=== PATIENT | female | born 1955 | race Caucasian/White ===

== ENCOUNTER 2022-08-21 11:48 | Day surgery (SDC) | payer OTHER ==
[~2022-08-21] VITALS: Ht 160 cm; Wt 92.7 kg
--- NOTE | ~2022-08-21 | OR ---
[facility] [address] [place], [place] [address] Draft DATE OF OPERATION: 08/21/2022 SURGEON: Eduarda Joseph MD PREOPERATIVE DIAGNOSES: 1. Upper abdominal pain consistent with gastroesophageal reflux. 2. Family history of colon cancer (father age 70). POSTOPERATIVE DIAGNOSES: 1. Umbilicated somewhat ulcerated lesion, duodenal bulb and mild gastritis. 2. Diverticulosis of colon. PROCEDURE: 1. Esophagogastroduodenoscopy with biopsies. 2. Total colonoscopy to cecum. ANESTHESIA: Intravenous sedation; fentanyl 150 mcg and Versed 4 mg. INDICATION: This 66-year-old white woman is a patient of Dr. David Smith. She has been referred for colonoscopy as well as upper endoscopy. She has no colonic symptoms currently, having no bleeding, diarrhea, constipation, but does have family history of colon cancer in her father at age 70. She last underwent colonoscopy in 2011, which was notable only for diverticulosis. She does have complaints of "reflux symptoms" including epigastric pain. She discontinued PPI medication, which had been prescribed before chronic esophagitis on previous upper endoscopy also in 2012. She uses Tums tablets and . She does not have dysphagia or hematemesis and has no family history of esophageal or stomach cancer. She is admitted at this time to undergo upper endoscopy and colonoscopy to better characterize her symptoms as well as assess for polyps, given her family history. She understands the risks of bleeding, infection, and perforation related upper endoscopy and colonoscopy and wished to proceed. FINDINGS: Upper endoscopy showed mild gastritis and mild distal esophagitis, but a good flap valve was noted. Most notable was a bulbar mucosal lesion that was hypertrophic and PATIENT NAME: TROY HILLIARD OPERATIVE REPORT DATE OF : 59 REPORT #: [id number] PHYSICIAN: EDUARDA JOSEPH MD PCP: DAVID SMITH DO REPORT IS CONFIDENTIAL AND NOT TO BE RELEASED WITHOUT AUTHORIZATION [facility] [address] [place], [place] [address] Draft umbilicated at the center portion. Multiple biopsies were taken of the lesion. The possibility of malignancy remains. CLOtest was negative 20 minutes post procedure. As regards colonoscopy, the prep was excellent. There were no polyps, only diverticular changes throughout. DESCRIPTION OF PROCEDURE: The patient was brought to the endoscopy suite, given topical lidocaine hypopharyngeal anesthesia and placed in lateral decubitus position. A bite block was placed. An Olympus video upper endoscope was passed in the hypopharynx. The vocal cords were normal. The scope was advanced down the esophagus, which was largely normal, though there was mild distal esophagitis. There was no Lackey's epithelium. Scope was advanced to the stomach, which was insufflated with air. Rugal folds were normal. There was mild diffuse inflammation, but not much. The pylorus was normal. The scope was passed through the pylorus into the duodenum. The 2nd and 3rd portions were normal. In the bulbar portion, however, there appeared to be an umbilicated hypertrophic or possibly adenomatous change directly behind the pylorus. It was difficult to fully visualize this, given the angle of the scope in the duodenal bulb. Multiple biopsies were taken of the lesion, however. The scope was withdrawn and biopsies then taken of the antrum and proximal stomach for both TAE and pathologic testing. Retroflexed view confirmed a very good flap valve. No evidence noted of hiatal hernia. The scope was withdrawn to the distal esophagus where biopsies were obtained and similarly to the mid esophagus. There was no evidence of Lackey's epithelium, neoplasm, stricture, or other issue. Plans were then made for colonoscopy. Digital rectal examination was found to be normal. An Olympus video colonoscope was passed in the rectum and manipulated throughout the colon ultimately intubating the cecum showing no sign of abnormality there. The scope was withdrawn and examination throughout showed no sign of abnormality, only diverticular changes of the left colon and sigmoid. Retroflexed view of the rectum was normal as well as the scope was removed. The patient was taken to recovery room in good condition. CONCLUDING DIAGNOSIS: 1. Uncertain mucosal lesion of the duodenal bulb (biopsied). 2. Mild gastritis, mild distal esophagitis without hiatal hernia. 3. Diverticular change of colon. PLAN: 1. We will initiate proton pump inhibitor therapy, omeprazole 20 mg p.o. daily. The patient will be reassured of the safety of this approach at this time. 2. High-fiber diet. PATIENT NAME: TROY HILLIARD OPERATIVE REPORT DATE OF : 59 REPORT #: [id number] PHYSICIAN: EDUARDA JOSEPH MD PCP: DAVID SMITH DO REPORT IS CONFIDENTIAL AND NOT TO BE RELEASED WITHOUT AUTHORIZATION [facility] [address] [place] [id number] Draft 3. Follow up to see me in approximately six weeks in the office. 4. Repeat colonoscopy in 5 years, sooner if clinically indicated. MD EDEN Walden/FELICITYL /[id number] cc: David Smith DO Copies: DAVID SMITH DO ~ PATIENT NAME: TROY HILLIARD OPERATIVE REPORT DATE OF : 59 REPORT #: [id number] PHYSICIAN: EDUARDA JOSEPH MD PCP: DAVID SMITH DO REPORT IS CONFIDENTIAL AND NOT TO BE RELEASED WITHOUT AUTHORIZATION
[2022-08-21] MEDS ORDERED: VITAMIN D310 MC1 PO (12:10)
[2022-08-21] MEDS ORDERED: MACULAR VITAMI1 EACH PO (12:11)
--- NOTE | 2022-08-21 13:49 | NUR ---
08/21/22 1349 Sheets,Yenny 1346 PT ARRIVED TO PACU ON 2L VIA NC, PT ASLEEP AND SMALL AMOUNT OF SNORING NOTED. RESP EVEN AND UNLABORED.
--- NOTE | 2022-08-23 13:43 | PATH ---
[facility] [facility] [address] [place], [place] [address] Signed SPECIMEN(S): A DUODENAL LESION BIOPSY SPECIMEN(S): B ANTRUM/PYLORUS BIOPSY SPECIMEN(S): C DISTAL ESOPHAGEAL BIOPSY SPECIMEN(S): D MID ESOPHAGEAL BIOPSY SPECIMEN SOURCE: A. DUODENAL LESION BIOPSY B. ANTRUM/PYLORUS BIOPSY C. DISTAL ESOPHAGEAL BIOPSY D. MID ESOPHAGEAL BIOPSY CLINICAL HISTORY: GERD; diverticulosis; family history of colon cancer. Postop diagnosis: Mild gastritis; diverticulosis FINAL PATHOLOGIC DIAGNOSIS: A. Duodenal lesion biopsy: - Extensive heterotopic gastric glandular epithelium. - Negative for atypical features. - Duodenal villous attenuation. - Negative for increased epithelial lymphocytes. B. Antrum / pylorus biopsy: - Benign gastric antral-type mucosa with focal slight chronic inflammation. - Negative for evidence of Helicobacter organisms on routine HE stained sections. C. Distal esophageal biopsy: - Benign esophageal and slight glandular epithelium. - Negative for specialized intestinal metaplasia or dysplasia. - Negative for increased eosinophils within the esophageal epithelium. D. Mid esophageal biopsy: - Benign esophageal mucosa, negative for increased epithelial eosinophils. JVR:[id number] MICROSCOPIC EXAMINATION: Histologic sections of all submitted blocks are examined by light microscopy. These findings, together with the gross examination, support the pathologic diagnosis. GROSS DESCRIPTION: A. The specimen, labeled and designated "Arnold duodenum lesion biopsy," is received in formalin and consists of eight mathias soft tissue fragments, each PATIENT NAME: TROY HILLIARD PATHOLOGY DATE OF : 59 REPORT #: [id number] PHYSICIAN: BERNIE BARTON PCP: CARITO SMITH DO REPORT IS CONFIDENTIAL AND NOT TO BE RELEASED WITHOUT AUTHORIZATION [facility] [address] [place], [place] [address] Signed measuring 0.1 to 0.3 cm. Entirely submitted in (A1). B. The specimen, labeled and designated "Kohfield, antrum/pylorus biopsy," is received in formalin and consists of one mathias soft tissue fragment, 0.3 cm. Entirely submitted in (B1). C. The specimen, labeled and designated "Kohfield, distal esophagus biopsy," is received in formalin and consists of four white-mathias soft tissue fragments, each measuring 0.2 cm. Entirely submitted in (C1). D. The specimen, labeled and designated "Kohfield, mid esophagus biopsy," is received in formalin and consists of two mathias soft tissue fragments, each measuring 0.2 to 0.6 cm. Entirely submitted in (D1). AC (under the direct supervision of a pathologist) The Gross Description was prepared using a voice recognition system. The report was reviewed for accuracy; however, sound-alike word errors, addition and/or deletions may occur. If there is any question about this report, please contact Client Services. PERFORMING LABORATORY: The technical component was performed by [facility], [address] [place] [id number] (CLIA# [id number]). Professional interpretation was performed by [facility], [address] [place] [id number] (CLIA#: [id number]). Diagnostician: Noah Moyer MD Pathologist Electronically Signed 08/23/2022 Copies: ~ PATIENT NAME: TROY HILLIARD PATHOLOGY DATE OF : 59 REPORT #: [id number] PHYSICIAN: BERNIE PATHOLOGY PCP: CARITO SMITH DO REPORT IS CONFIDENTIAL AND NOT TO BE RELEASED WITHOUT AUTHORIZATION
== END 2022-08-21 14:30 | disposition home or self-care (01) ==
LOC: DS 11:48 → OPS 11:48 → DS 14:00 → OPS 14:30
PROVIDERS: ATTEND Surgery
PROC: 0DB68ZX Excision of Stomach, Via Natural or Artificial Opening Endoscopic, Diagnostic (ICD-10-PCS; 2022-08-21)
PROC: 0DJD8ZZ Inspection of Lower Intestinal Tract, Via Natural or Artificial Opening Endoscopic (ICD-10-PCS; principal; 2022-08-21 13:15)
PROC: 0DB98ZX Excision of Duodenum, Via Natural or Artificial Opening Endoscopic, Diagnostic (ICD-10-PCS; 2022-08-21 13:15)
DX: K29.70 Gastritis, unspecified, without bleeding (principal); R10.10 Upper abdominal pain, unspecified; Z80.0 Family history of malignant neoplasm of digestive organs; K21.00 Gastro-esophageal reflux disease with esophagitis, without bleeding; Z90.711 Acquired absence of uterus with remaining cervical stump; Z87.891 Personal history of nicotine dependence; K57.30 Diverticulosis of large intestine without perforation or abscess without bleeding; K20.90 Esophagitis, unspecified without bleeding
CPT/HCPCS: 99153; G0500; J2250; J3010; J7121